=== PATIENT | female | born 1970 | race African-American/Black ===

== ENCOUNTER 2019-05-14 16:30 | Emergency (ER) | payer BC ==
[~2019-05-14] VITALS: Ht 177.8 cm; Wt 108.9 kg
[2019-05-14 16:36] VITALS: BP 119/80
[2019-05-14 17:00] LABS: URINE BLOOD 3+ (Negative); URINE CLARITY CLOUDY; URINE COLOR YELLOW; URINE GLUCOSE-RANDOM* NEGATIVE (Negative); URINE KETONES NEGATIVE (Negative); URINE NITRITE-REFLEX NEGATIVE (Negative); URINE PROTEIN (DIPSTICK) 2+ (Negative); URINE SPECIFIC GRAVITY >= 1.030 (1.005-1.035); URINE UROBILINOGEN 0.2 E.U./dl (0.2-1.0)
[2019-05-14 17:04] LABS: ICTOTEST (BILI CONFIRMATORY) Negative (Negative); URINE BILIRUBIN NEGATIVE (Negative); URINE LEUKOCYTES-REFLEX 1+ (Negative)
[2019-05-14 17:05] LABS: URINE RBC >20 Many /HPF (0-2); URINE WBC-REFLEX >25 Many /HPF (0-5)
[2019-05-14 17:06] LABS: BACTERIA-REFLEX 1-9 Few /HPF (None Seen); CASTS None Seen /LPF (None Seen); CRYSTALS None Seen /LPF (None Seen); SQUAMOUS 0-3 Few /LPF (0-3)
[2019-05-14] MEDS ORDERED: KEFLEX500 M1 PO (17:31)
[2019-05-14] MEDS ORDERED: PYRIDIUM200 M2 PO (17:31)
== END 2019-05-14 17:30 | disposition home or self-care (01) ==
LOC: ER 16:30
PROVIDERS: Emergency Medicine
DX: N39.0 Urinary tract infection, site not specified (principal); I10 Essential (primary) hypertension; Z98.890 Other specified postprocedural states; Z91.018 Allergy to other foods